=== PATIENT | female | born 1990 | race Caucasian/White ===

== ENCOUNTER 2016-10-10 08:00 | Inpatient (IN) ==
[2016-10-10] MEDS ORDERED: Famotidine 20 MG/2 ML VIAL IVP PRN (08:12)
[2016-10-10] MEDS ORDERED: Ondansetron 4 MG/2 ML VIAL IVP PRN (08:12)
[2016-10-10] MEDS ORDERED: Metoclopramide 10 MG/2 ML VIAL IVP PRN (08:12)
--- NOTE | 2016-10-10 08:23 | OB/GYN History & Physical ---
Date of Encounter: 10/10/16 Time of Encounter: 08:21 Assessment and Plan (1) 39 weeks gestation of Current visit: Yes Status: Acute cytotec induction of labor continuous monitoring pt monitoring of progression of labor supportive care (2) Elective induction of labor planned Current visit: Yes Status: Acute vaginal cytotec consult for epidural continuous monitoring pt monitoring for progression of labor NPO, supportive care History of Present Illness Chief complaint: induction HPI: Ms. Lee is a 26 year old female at 39.5week ROS 10/12/16.Dr Maldonado pt. Pt here for elective induction of labor. Pt states she has not had any contractions besides some intermittent non-painful irregular robles-luis contractions for the past few weeks usually occurring while laying down. Pt states current was complicated by hyperemisis gravidarum and subutex use for previous opiod dependance. Pt denies loss of fluids, mucous plug, vaginal discharge or bleeding,headache, change in vision, CP, palpitation, SOB, N/V/D, LE edema. O+ GBS- Rubella immune HepB NR RPR - Varicella immune HIV NR Past Med Surg Social Fam HX - Past Medical History Medical history: other (opiod drug abuse) Psychiatric history: anxiety, bipolar, depression, PTSD - Past Surgical History Surgical History: no surgical history - Social History Smoking Status: Current every day smoker Smokeless Tobacco Status: No Alcohol use: none Drug use: none - Family History Mother Living Status: Still Living Hx Family Cancer: Yes Hx Family Endocrine Disorder: Yes Obstetrical History - Pregnancies : 3 Para: 2 Term: 2 : 0 Ab's: 0 Livin - History/Complications History/Complications: cystic hygroma at 20 weeks in first preeclampsia and third trimester bleeding in second hyperemisis gravidarum in current Medications and Allergies Buprenorphin-Naloxon 8-2 mg Sl 8 mg SL BID 06/13/16 [History] Famotidine [Heartburn Prevention] 20 mg PO BID 06/13/16 [History] Promethazine [Phenergan] 25 mg PO BID PRN 06/13/16 [History] Quetiapine Fumarate [SEROquel] 100 mg PO HS 06/13/16 [History] Granisetron [Sancuso] 1 patch TD QWEEK 10/10/16 [History] Ondansetron [Zofran] 8 mg PO Q6H PRN 10/10/16 [History] Pseudoephedrine HCl [Nasal Decongestant] 30 mg PO Q4H PRN 10/10/16 [History] Allergies No Known Allergies Allergy (Verified 05/02/16 02:24) Review of System OB All systems PM: reviewed and no additional remarkable complaints except as stated Exam - Constitutional Constitutional: well developed, well nourished, no acute distress, average body habitus - HEENT HEENT: EOMI, Mucus Membranes Moist - Neck Neck exam: full ROM - Lungs Respiratory exam: CTAB - Cardiovascular Cardiovascular exam: RRR, +S1, +S2 - Abdomen Abdomen: Present: bowel sounds normal, gravid, non tender - Extremities Extremities exam: pedal edema (trace) Deep Tendon Reflex Grade: 2+ Normal - Vagina Vagina: Present: normal moisture - Cervix Dilation: 2 (per signals collection technician) Effacement: 60 Station: -2 Results Result Diagrams: 10/10/16 08:40 All other labs normal. - VTE Reasons for not Prescribing Prophylaxis: Treatment not Indicated - Low risk for VTE
[2016-10-10 08:51] LABS: Basophils % 0.1 %; Eosinophils # 0.2 K/mcL (0.0-0.6); Eosinophils % 2.3 %; Hematocrit 28.7 % (35.3-44.9); Hemoglobin 9.9 g/dL (11.5-15.4); Immature Granulocytes % 0.8 % (0-4); Immature Platelets 5.2 % (1.1-6.1); Lymphocytes # 1.5 K/mcL (0.6-4.6); Lymphocytes % 18.1 %; Mean Corpuscular HGB Conc 34.5 g/dL (31.6-35.5); Mean Corpuscular Hemoglobin 30.7 pg (28.0-33.3); Mean Corpuscular Volume 89.1 fL (83.0-100.0); Mean Platelet Volume 10.3 fL (9.4-12.4); Monocytes # 0.9 K/mcL (0.0-1.3); Monocytes % 10.3 %; Neutrophils # 5.7 K/mcL (1.6-8.9); Platelet Count 258 K/mcL (140-400); Red Blood Count 3.22 M/mcL (3.82-4.97); Red Cell Distribution Width 13.2 % (11.5-14.5); Segmented Neutrophils % 68.4 %
[2016-10-10] MEDS ORDERED: miSOPROStol 25 MCG TABLET VG PRN (09:32)
--- NOTE | 2016-10-10 09:44 | Anesthesia Evaluation PreOp ---
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 HX Other Medical History: Other (previous drug abuse on subutex) Anesthesia History: No Prior Anesthetic Complications, Past Anesthesia (2 previous epidurals, 1 did not take well according to patient.) Alcohol Use: none Drug use: none Medications and Allergies Buprenorphin-Naloxon 8-2 mg Sl 8 mg SL BID 06/13/16 [History] Famotidine [Heartburn Prevention] 20 mg PO BID 06/13/16 [History] Promethazine [Phenergan] 25 mg PO BID PRN 06/13/16 [History] Quetiapine Fumarate [SEROquel] 100 mg PO HS 06/13/16 [History] Granisetron [Sancuso] 1 patch TD QWEEK 10/10/16 [History] Ondansetron [Zofran] 8 mg PO Q6H PRN 10/10/16 [History] Pseudoephedrine HCl [Nasal Decongestant] 30 mg PO Q4H PRN 10/10/16 [History] Allergies No Known Allergies Allergy (Verified 05/02/16 02:24) Anesthesia Results - Labs 10/10/16 08:40 Anesthesia Exam - HEENT Pupil (Motor): Pupils equal Mallampati: II Teeth: Normal Oral Opening: Greater than 3 - MOLD RELEASE WORKER LOC: Oriented MOLD RELEASE WORKER Motor: Normal RUE, Normal LUE, Normal RLE, Normal LLE, Normal Face MOLD RELEASE WORKER Sensory: Normal: RUE, LUE, RLE, LLE, Face - Cardiac Rhythm: Regular Murmur: None - Pulmonary Breath Sounds: bilateral Clear Respiratory Effort: Symmetrical Anesthesia Assess/Plan ASA Score: 2 Modified Raza Scale for Level of Consciousness: Cooperative, oriented, and tranquil Anesthetic Plan: General, Regional Monitoring Plan: Standard Monitors
[2016-10-10] MEDS ORDERED: Epidural Premix (fent/bupiv) 110 ML EP ONE ×2 (09:47→19:32)
[2016-10-10] MEDS: Ringers Solution, Lactated 1,000 ML IVC SCH ×2 (09:55→14:58)
--- NOTE | 2016-10-10 13:13 | OB Labor Progress Note ---
Date of Encounter: 10/10/16 Time of Encounter: 13:05 Labor Progress Note - Subjective Subjective: patient not really feeling contractions willing to try the tinoco induction - Cervix Cervix: 2-3/80/0 posterior, tinoco placed without difficulty - Heart Tones Heart Tones: heart tones 140s reactive - Talent Talent: contractions every 3-5min irregular - Plan Plan: Continue current care and Tinoco still in place and [address] another Cytotec it out will recommend epidural followed by artificial rupture membranes
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
[2016-10-10] MEDS ORDERED: Oxytocin 20 units/ LR 1000 mL 20 UNIT/1,000 ML BAG IVC ONE ×2 (15:29→23:06)
[2016-10-10] MEDS ORDERED: Oxytocin 20 units/ LR 1000 mL 20 UNIT/1,000 ML BAG IVC SCH (15:30)
--- NOTE | 2016-10-10 17:40 | OB Labor Progress Note ---
Date of Encounter: 10/10/16 Time of Encounter: 15:30 Labor Progress Note - Subjective Subjective: Patient comfortable now epidural is in place and Figueroa catheter out - Cervix Cervix: 4/80/0 AROM large amount of clear fluid - Heart Tones Heart Tones: 140's reactive - Tollette Tollette: Contractions irregular every 3-5 minutes - Plan Plan: We will augment with Pitocin plan is to anticipate vaginal delivery
--- NOTE | 2016-10-10 17:41 | OB Labor Progress Note ---
Date of Encounter: 10/10/16 Time of Encounter: 17:40 Labor Progress Note - Subjective Subjective: Patient still very comfortable not feeling any contractions - Cervix Cervix: 5-6/80/0+1 - Heart Tones Heart Tones: heart tones 140s reactive - Holly Holly: Contractions every 2 minutes - Plan Plan: Continue current care plan is to anticipate vaginal delivery
[2016-10-10] MEDS ORDERED: 0.9 % Sodium Chloride 1,000 ML ONE (18:52)
--- NOTE | 2016-10-10 18:55 | OB Labor Progress Note ---
Date of Encounter: 10/10/16 Time of Encounter: 18:50 Labor Progress Note - Subjective Subjective: Patient still comfortable having some variable decelerations - Cervix Cervix: 7-8/80/+1 IUPC inserted and amnioinfusion started - Heart Tones Heart Tones: heart tones 140s reactive with variable decelerations - [place]: IUPC inserted contractions every 2 minutes amnioinfusion started 300 bolus then 125 an hour - Plan Plan: Anticipate normal spontaneous vaginal delivery
--- NOTE | 2016-10-10 21:07 | OB/GYN Procedure Note ---
Delivery - Delivery Date: 10/10/16 Provider: Neftali Dennis Intrapartum events: none Delivery induction: tinoco, misoprostol Delivery augmentation: rupture of membranes, pitocin Delivery monitor: external FHT, external uterine, internal uterine Anesthesia: epidural Estimated Blood Loss: 100 - Infant (s) Infant A Infant Delivery Date: 10/10/16 Delivery Time: 20:43 Presentation: vertex Position: RADHIKA Route of delivery: Gender: Female Viability: Viable Pounds: 6 Ounces: 9 Weight Gram: 2.99 kg at 1 minute: 8 at 5 mins: 9 Shoulder Dystocia: not encountered Specimens collected: cord blood Placenta: spontaneous Cord: 3 umbilical vessels - Repair Episiotomy: none Laceration Description: None - Complications Delivery complications: none Delivery comments: Patient is a 26-year-old 3 para 2 at 39-5/7 weeks who presented to labor and delivery for induction of labor secondary to with favorable cervix. Patient had a cervix with a Burton score of 10 and wanted to be induced. [facility] Patient received Cytotec on admission after proximal before our she was not making much cervical change and we convinced her to try a Tinoco catheter. Tinoco was placed without difficulty if they will out within an hour and she was a good 4 cm at this point the patient did receive an epidural she was then artificially ruptured with large amounts of clear fluid. Patient was augmented with Pitocin to keep contractions gone did have some variable decelerations the Pitocin was decreased and those resolved. We did do an amnioinfusion also at this time. Patient became complete and pushed twice delivering a viable female infant in right occiput anterior presentation at 2045. There was no nuchal cord , there is no meconium, infant was bulb suctioned on the abdomen. Apgars were 8 at one minutes, 9 at 5 minutes, weight was 6 lbs. 9 oz. Placenta was then delivered spontaneously with three-vessel cord, stoner out at the [place] , optometry assistant Dr. Wang PGY1, anesthesia epidural, estimate of blood loss 100 mL. Perineum cervix and vagina was full visualize intact. She did have a left labial abrasion there was no bleeding no suture was needed. Uterus was explored and no retained products. All needles lap sponge counts were correct 3 patient tolerated the delivery well. She will be observed 2 hours before being taken floor.
[2016-10-10] MEDS ORDERED: Oxytocin 20 units/ LR 1000 mL 20 UNIT/1,000 ML BAG IV SCH (23:06)
[2016-10-10] MEDS ORDERED: Measles/Mumps/Rubella Vacc 0.5 ML VIAL SQ PRN (23:06)
[2016-10-10] MEDS ORDERED: Acetaminophen 325 MG TABLET PO PRN (23:06)
[2016-10-10] MEDS ORDERED: BUPRENORPHIN NALOXON SL SCH (23:06)
[2016-10-10] MEDS ORDERED: SANCUSO TP SCH (23:06)
[2016-10-10] MEDS ORDERED: Famotidine 20 MG TABLET PO SCH (23:06)
[2016-10-11] MEDS: Ibuprofen 600 MG TABLET PO PRN ×2 (00:53→08:34)
[2016-10-11] MEDS ORDERED: Ondansetron ODT 4 MG TAB.RAPDIS SL PRN (03:58)
[2016-10-11 04:07] LABS: Basophils % 0.2 %; Eosinophils # 0.1 K/mcL (0.0-0.6); Eosinophils % 0.8 %; Hematocrit 30.2 % (35.3-44.9); Hemoglobin 10.4 g/dL (11.5-15.4); Immature Granulocytes % 0.6 % (0-4); Lymphocytes # 1.5 K/mcL (0.6-4.6); Lymphocytes % 12.4 %; Mean Corpuscular HGB Conc 34.4 g/dL (31.6-35.5); Mean Corpuscular Hemoglobin 30.7 pg (28.0-33.3); Mean Corpuscular Volume 89.1 fL (83.0-100.0); Mean Platelet Volume 10.8 fL (9.4-12.4); Monocytes # 1.1 K/mcL (0.0-1.3); Monocytes % 8.4 %; Neutrophils # 9.7 K/mcL (1.6-8.9); Platelet Count 222 K/mcL (140-400); Red Blood Count 3.39 M/mcL (3.82-4.97); Red Cell Distribution Width 13.2 % (11.5-14.5); Segmented Neutrophils % 77.6 %
[2016-10-11 08:49] VITALS: BP 102/72
[2016-10-11] MEDS ORDERED: Prenatal Vit/FA 1 EACH TABLET PO SCH (09:00)
--- NOTE | 2016-10-11 09:10 | Discharge Summary ---
Date of Encounter: 10/11/16 Time of Encounter: 09:08 - Discharge Diagnosis (1) Anemia affecting in third trimester Priority: Secondary Status: Acute (2) Opiate addiction Priority: Secondary Status: Chronic Qualifiers: Substance use status: uncomplicated Qualified Code(s): F11.20 - Opioid dependence, uncomplicated (3) 39 weeks gestation of Priority: Secondary Status: Resolved (4) Elective induction of labor planned Priority: Primary Status: Resolved - Discharge Medications Prescriptions: Ibuprofen [Motrin] 600 mg PO Q6HR PRN #20 tablet PRN Reason: Cramping Home Medications: Buprenorphin-Naloxon 8-2 mg Sl 8 mg SL BID 06/13/16 [History] Quetiapine Fumarate [Seroquel] 100 mg PO HS 06/13/16 [History] Granisetron [Sancuso] 1 patch TD QWEEK 10/10/16 [History] Ferrous Sulfate 325 mg PO DAILY tablet 10/11/16 [Rx] Ibuprofen [Motrin] 600 mg PO Q6HR PRN #20 tablet 10/11/16 [Rx] Vit/FA 1 each PO DAILY tablet 10/11/16 [Rx] Allergies/Adverse Reactions: Allergies No Known Allergies Allergy (Verified 05/02/16 02:24) Data Procedures and tests throughout hospitalization: Laboratory Tests 10/10/16 10/11/16 08:40 03:25 WBC 8.4 12.5 H RBC 3.22 L 3.39 L Hgb 9.9 L 10.4 L Hct 28.7 L 30.2 L MCV 89.1 89.1 MCH 30.7 30.7 MCHC 34.5 34.4 RDW 13.2 13.2 Plt Count 258 222 MPV 10.3 10.8 Immature Gran % 0.8 0.6 Seg Neutrophils % 68.4 77.6 Lymphocytes % 18.1 12.4 Monocytes % 10.3 8.4 Eosinophils % 2.3 0.8 Basophils % 0.1 0.2 Neutrophils # 5.7 9.7 H Lymphocytes # 1.5 1.5 Monocytes # 0.9 1.1 Eosinophils # 0.2 0.1 Basophils # 0.0 0.0 Immature Plt Fraction 5.2 Labs on day of discharge: Labs from last 24 hours 10/11/16 03:25 WBC 12.5 H RBC 3.39 L Hgb 10.4 L Hct 30.2 L MCV 89.1 MCH 30.7 MCHC 34.4 RDW 13.2 Plt Count 222 MPV 10.8 Immature Gran % 0.6 Seg Neutrophils % 77.6 Lymphocytes % 12.4 Monocytes % 8.4 Eosinophils % 0.8 Basophils % 0.2 Neutrophils # 9.7 H Lymphocytes # 1.5 Monocytes # 1.1 Eosinophils # 0.1 Basophils # 0.0 Date of admission: 10/10/16 08:10 Primary care physician: katty Consults: 10/10/16 23:06 Consult to Green Inspector [CONS] Routine Comment: Vaginal delivery, consult needed Discharging clinician: Zunilda Navas Anticipated date of discharge: 10/11/16 - Patient Status Disposition: Home, Self-Care Condition: Good Functional capacity at discharge: independent ambulation Overall status at discharge: patient is progressing back to baseline - Discharge Instructions - Diet and Activity Activity: increase activity as tolerated Diet: advance to your usual diet Hospital Course Reason for admission: induction of labor Delivery: Episiotomy: none Laceration: none Other procedures: none complications: none Discharge diagnosis: IUP at term delivered [place] baby: female Time Attestation: Total time spent providing and/or coordinating discharge services: Time Spent: Less than 30 minutes Exam - Constitutional Vitals: Temp Pulse Resp BP Pulse Ox 97.7 F 70 16 102/72 97 10/11/16 08:12 10/11/16 08:12 10/11/16 08:12 10/11/16 08:12 10/11/16 08:12 General appearance IM: A&O X 3, no acute distress - Respiratory Respiratory exam: Absent: respiratory distress - Cardiovascular Cardiovascular exam IM: Absent: irregular rhythm - GI/Abdominal GI/Abdominal exam IM: normal bowel sounds Incision: normal, dry, intact - Rectal Rectal exam: deferred - Uterine Tone: Firm Uterus Position: 1 Finger Below Umbilicus - Extremities Exam Extremities exam IM: Absent: calf tenderness
== END 2016-10-11 11:30 | disposition home or self-care (01) | DRG 560 ==
LOC: 1NENULAB 08:10 → 1NENUOBS 23:05
PROVIDERS: ADMIT Obstetrics & Gynecology; ATTEND Obstetrics & Gynecology